=== PATIENT | male | born 1965 | race Caucasian/White ===

== ENCOUNTER 2018-09-14 16:23 | Inpatient (IN) | payer MEDICAID ==
[2018-09-14] MEDS ORDERED: Sodium Chloride 0.9% 1,000 ML IV ONE (16:48)
[2018-09-14] MEDS ORDERED: Sodium Chloride 0.9% 1,000 ML ONE (16:50)
[2018-09-14 17:02] LABS: BASO # 0.1 K/uL (0.0-0.2); BASO % 0.7 % (0.0-2.0); EOS # 0.1 K/uL (0.0-0.7); EOS % 1.3 % (0.0-4.0); HEMOGLOBIN 16.2 g/dL (12.0-18.0); LYMPH # 1.3 K/uL (1.0-4.3); MEAN CELL VOLUME 89.2 fL (80.0-94.0); MEAN CORPUSCULAR HGB CONC 33.6 g/dL (33.0-37.0); MEAN PLATELET VOLUME 7.6 fL (7.2-11.7); MONO # 1.1 K/uL (0.0-0.8); MONO % 12.8 % (0.0-10.0); NEUT # 5.7 K/uL (1.8-7.0); NEUT % 69.2 % (50.0-75.0); RBC 5.41 Mil/uL (4.40-5.90); RED CELL DISTRIBUTION WIDTH 14.4 % (11.5-14.5); WHITE BLOOD COUNT 8.2 K/uL (4.8-10.8)
--- NOTE | 2018-09-14 17:15 | C.PDOC ---
History Of Present Illness 53 y/o male brought to ER by ambulance from [facility] for evaluation of vomiting and abdominal pain which has been present for the past 7 days. Patient states that he now has dark blood in vomit.Patient denies having fever, chills, dysuria, and hematuria. Time Seen by Provider: 09/14/18 16:32 Chief Complaint (Nursing): GI Problem History Per: Patient History/Exam Limitations: no limitations Onset/Duration Of Symptoms: Days Current Symptoms Are (Timing): Still Present Severity: Moderate Past Medical History Reviewed: Historical Data, Nursing Documentation, Vital Signs Vital Signs: Last Vital Signs Temp 98.5 F 09/14/18 16:32 Pulse 97 H 09/14/18 16:32 Resp 18 09/14/18 16:32 BP 131/92 H 09/14/18 16:32 Pulse Ox 98 09/14/18 16:32 - Medical History PMH: CAD, Diabetes, HTN, Hypercholesterolemia, Pulmonary Embolism, Schizophrenia Denies: CHF Surgical History: Denies: Pacemaker - [facility] Procedures PERITONSILLAR I & D (04/19/14) TETANUS TOXOID ADMINIST (09/26/14) Family History: States: [place], CAD, Diabetes, Hypertension - Social History Hx Tobacco Use: Yes Hx Alcohol Use: Yes Hx Substance Use: No - Immunization History Hx Tetanus Toxoid Vaccination: No Hx Influenza Vaccination: No Hx Pneumococcal Vaccination: No Review Of Systems Except As Marked, All Systems Reviewed And Found Negative. Constitutional: Negative for: Fever, Chills Gastrointestinal: Positive for: Vomiting, Abdominal Pain. Negative for: Diarrhea Genitourinary: Negative for: Dysuria, Hematuria Physical Exam - Physical Exam Appears: Other (actively vomiting) Skin: Normal Color, Warm, Dry Head: Atraumatic, Normacephalic Eye(s): bilateral: Normal Inspection Nose: Normal Oral Mucosa: Moist Neck: Supple Chest: Symmetrical Cardiovascular: Rhythm Regular Respiratory: No Rales, Rhonchi (mild bilateral rhonchi), No Wheezing Gastrointestinal/Abdominal: Soft, Tenderness (mild diffuse tenderness), No Guarding, No Rebound Neurological/Psych: Oriented x3, Normal Speech ED Course And Treatment - Laboratory Results Result Diagrams: 09/14/18 16:55 09/14/18 16:55 Lab Interpretation: No Acute Changes ECG: Interpreted By Me ECG Rhythm: Sinus Rhythm ECG Interpretation: No Acute Changes Rate From EC O2 Sat by Pulse Oximetry: 98 (RA) Pulse Ox Interpretation: Normal - Radiology CXR: Interpreted by Me CXR Interpretation: Yes: No Acute Disease - Other Rad No standard instances X-Ray: Viewed By Me, Read By Radiologist Interpretation: FINDINGS: LUNGS: No focal consolidation. Please note that chest x-ray has limited sensitivity for the detection of pulmonary masses. PLEURA: No significant pleural effusion identified. No definite pneumothorax . CARDIOVASCULAR: Heart size appears within normal limits. Mild aortic ectasia. Atherosclerotic calcifications present. OSSEOUS STRUCTURES: Degenerative changes of the spine. VISUALIZED UPPER ABDOMEN: Unremarkable. OTHER FINDINGS: None. IMPRESSION: No focal consolidation present. Progress Note: Treated with IVF NSS, zofran and protonics. On re-evaluation treated with ativan IV. 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 - Scribe Statement The provider has reviewed the documentation as recorded by the Bradibe Leroy Swain Provider Attestation All medical record entries made by the Scribe were at my direction and personally dictated by me. I have reviewed the chart and agree that the record accurately reflects my personal performance of the history, physical exam, medical decision making, and the department course for this patient. I have also personally directed, reviewed, and agree with the discharge instructions and disposition. Decision To Admit - Pt Status Changed To: Hospital Disposition Of: Inpatient - Admit Certification Admit to Inpatient:: After my assessment, the patient will require hospitalization for at least two midnights. This is because of the severity of symptoms shown, intensity of services needed, and/or the medical risk in this patient being treated as an outpatient. - InPatient: Physician Admission Certification:: Intractable Vomiting. GI Bleeding - . Bed Request Type: Regular Admitting Physician: Evelio Gonzalez Patient Diagnosis: Gastrointestinal hemorrhage, Vomiting
[2018-09-14 17:20] LABS: ALB/GLOB RATIO 1.5 (1.0-2.1); ALBUMIN 4.4 g/dL (3.5-5.0); ALT/SGPT 14 U/L (21-72); AST/SGOT 19 U/L (17-59); BLOOD UREA NITROGEN 24 mg/dL (9-20); CALCIUM 9.2 mg/dl (8.6-10.4); GFR NON-AFRICAN AMERICAN > 60; LIPASE 75 U/L (23-300)
[2018-09-14 17:30] LABS: SQUAMOUS EPITHIAL < 1 /hpf (0-5); URINE AMORPHOUS SEDIMENT RARE /ul (<OCC); URINE BACTERIA OCC (<OCC); URINE BILIRUBIN NEGATIVE (NEGATIVE); URINE BLOOD NEGATIVE (NEGATIVE); URINE CLARITY Hazy (Clear); URINE COLOR Yellow (YELLOW); URINE GLUCOSE (UA) 1+ mg/dL (Normal); URINE LEUKOCYTE ESTERASE NEG Leu/uL (Negative); URINE PROTEIN NEGATIVE (NEGATIVE); URINE UROBILINOGEN NORMAL mg/dL (0.2-1.0)
--- NOTE | 2018-09-14 17:41 | RAD ---
HISTORY: SOB COMPARISON: Chest x-ray performed 07/24/14 TECHNIQUE: Chest PA and lateral FINDINGS: LUNGS: No focal consolidation. Please note that chest x-ray has limited sensitivity for the detection of pulmonary masses. PLEURA: No significant pleural effusion identified. No definite pneumothorax . CARDIOVASCULAR: Heart size appears within normal limits. Mild aortic ectasia. Atherosclerotic calcifications present. OSSEOUS STRUCTURES: Degenerative changes of the spine. VISUALIZED UPPER ABDOMEN: Unremarkable. OTHER FINDINGS: None. IMPRESSION: No focal consolidation present.
[2018-09-14] MEDS: Lactated Ringer's 1,000 ML IV SCH (22:53)
[2018-09-14] MEDS: (Novolin R) Insulin Human Regular 100 units/ml vial SC SCH (22:54)
[2018-09-15] MEDS: Lactated Ringer's 1,000 ML IV SCH ×3 (07:32→17:22)
[2018-09-15] MEDS: (Novolin R) Insulin Human Regular 100 units/ml vial SC SCH ×4 (07:33→21:17)
[2018-09-15 08:46] LABS: ALB/GLOB RATIO 1.4 (1.0-2.1); ALBUMIN 3.8 g/dL (3.5-5.0); ALT/SGPT 21 U/L (21-72); AMYLASE 69 U/L (30-110); AST/SGOT 24 U/L (17-59); BLOOD UREA NITROGEN 17 mg/dL (9-20); GFR NON-AFRICAN AMERICAN > 60; LIPASE 70 U/L (23-300)
[2018-09-15] MEDS: Enoxaparin 40 mg Syringe SC SCH (09:43)
--- NOTE | 2018-09-15 09:55 | US ---
Abdominal ultrasound HISTORY: Abdominal pain. Comparison: None available. TECHNIQUE: Real-time sonography was performed through the abdomen. Findings: Liver: 15.3 centimeters in length. Normal echogenicity. Gallbladder: No calculi or sludge. Normal wall thickness of 1.7 millimeters. Negative sonographic Phillips's sign. Common bile duct measures 4.8 millimeters, within normal limits. Limited visualization of the pancreas. Spleen measures 11.4 centimeters in length, within normal limits. Visualized aorta and IVC are preserved. Right kidney: 12.2 x 4.9 x 5.2 centimeters. No calculi or hydronephrosis. Left Kidney: 12.1 x 5.6 x 5.2 centimeters. No calculi or hydronephrosis. Impression: Unremarkable sonographic evaluation of the abdomen. Limited visualization of the pancreas. A preliminary report was submitted by [facility].
--- NOTE | 2018-09-15 20:09 | CARD ---
APPROVED REPORT Date of service: 09/14/2018 EKG Measurement Heart [id number] <Conclusion> Normal sinus rhythm Possible Left atrial enlargement Left anterior fascicular block Left ventricular hypertrophy Abnormal ECG
--- NOTE | 2018-09-15 21:13 | CP.PCM.HP ---
Present on Admission - Present on Admission Any Indicators Present on Admission: Yes History of DVT/PE: Yes Past Patient History - Tetanus Immunizations Tetanus Immunization: Unknown - Past Medical History & Family History Past Medical History?: Yes - Past Social History Smoking Status: Light Smoker < 10 Cigarettes Daily - CARDIAC Hx Congestive Heart Failure: No Hx Hypercholesterolemia: Yes Hx Hypertension: Yes Hx Pacemaker: No - PULMONARY Hx Pulmonary Embolism: Yes - NEUROLOGICAL Other/Comment: patient has unknown history of possible CVA/TIA with or without residual - HEENT Hx Deafness: No Hx Epistaxis: No - ENDOCRINE/METABOLIC Hx Diabetes Mellitus Type 2: Yes - MUSCULOSKELETAL/RHEUMATOLOGICAL Hx Falls: Yes (this AM after feeling dizzy) - PSYCHIATRIC Hx Schizophrenia: Yes Hx Substance Use: No - SURGICAL HISTORY Hx Cardiac Catheterization: Yes Other/Comment: left side of head injury and needs suturing - ANESTHESIA Hx Anesthesia: Yes Hx Anesthesia Reactions: No Hx Malignant Hyperthermia: No Has any member of the family had a problem w/ anesthesia?: No Meds Allergies/Adverse Reactions: Allergies Allergy/AdvReac Type Severity Reaction Status Date / Time No Known Allergies Allergy Verified 09/14/18 16:36 Results - Vital Signs Recent Vital Signs: Last Vital Signs Temp 98.2 F 09/15/18 17:52 Pulse 72 09/15/18 17:52 Resp 20 09/15/18 17:52 BP 113/71 09/15/18 17:52 Pulse Ox 96 09/15/18 17:52 - Labs Result Diagrams: 09/14/18 16:55 09/15/18 08:08 Labs: Laboratory Results - last 24 hr 09/14/18 09/15/18 09/15/18 21:44 07:07 08:08 Sodium 136 Potassium 4.0 Chloride 99 Carbon Dioxide 29 Anion Gap 12 BUN 17 Creatinine 0.8 Est GFR ( Amer) > 60 Est GFR (Non-Af Amer) > 60 POC Glucose (mg/dL) 163 H 147 H Random Glucose 146 H D Calcium 9.0 Phosphorus 3.6 Magnesium 1.9 Total Bilirubin 0.9 AST 24 ALT 21 D Alkaline Phosphatase 78 Total Protein 6.5 Albumin 3.8 Globulin 2.7 Albumin/Globulin Ratio 1.4 Amylase 69 Lipase 70 09/15/18 09/15/18 10:47 16:36 Sodium Potassium Chloride Carbon Dioxide Anion Gap BUN Creatinine Est GFR ( Amer) Est GFR (Non-Af Amer) POC Glucose (mg/dL) 169 H 172 H Random Glucose Calcium Phosphorus Magnesium Total Bilirubin AST ALT Alkaline Phosphatase Total Protein Albumin Globulin Albumin/Globulin Ratio Amylase Lipase
[2018-09-16] MEDS: Lactated Ringer's 1,000 ML IV SCH ×5 (02:36→23:30)
--- NOTE | 2018-09-16 06:12 | PN ---
DATE: 09/15/2018 LOCATION: 360, bed B. SUBJECTIVE: This 53-year-old male seen and examined in rounds with recurrent episodes of nausea as well as reported hiccup and dyspepsia. Due to above and due to reported episode of vomiting, the patient kept n.p.o. Today's lab results showed blood glucose level of 169. Rest of SMA-18 including serum lipase and amylase level is pending. The patient is for EGD at a.m. PHYSICAL EXAMINATION: GENERAL: A 53-year-old male. VITAL SIGNS: Afebrile, pulse of 68, respiratory rate 20 to 22, blood pressure 118/74. HEENT: Showed pale dry oral mucoid membrane. Nonicteric sclerae. LUNGS: A few scattered crepitation. Decreased air entry at bases. HEART: Positive S1 and S2. ABDOMEN: Soft. Bowel sounds are present. No mass or organomegaly. No rebound tenderness or guarding. EXTREMITIES: Without edema, clubbing, or cyanosis. NEUROLOGIC: No reported new neurological deficits, sensory or motor. Yesterday ultrasound results seen, unremarkable. IMPRESSION: 1. Re-exacerbation of peptic ulcer disease with episodes of nausea and vomiting. 2. Poorly controlled diabetes mellitus with symptomatic gastroparesis. 3. Multiple past medical history including hypertension, coronary artery disease, hyperlipidemia, pulmonary embolus with schizophrenia. SUGGESTIONS: 1. Continue current management. 2. Endoscopic evaluation of the upper GI tract. 3. Reglan IV. 4. Further recommendation to follow. Trae Marquez MD
[2018-09-16] MEDS: (Novolin R) Insulin Human Regular 100 units/ml vial SC SCH ×4 (07:17→22:33)
[2018-09-16 07:35] LABS: INR 1.1
[2018-09-16] MEDS ORDERED: Pneumococcal 23-Valent Vaccine IM ONE (10:00)
[2018-09-16] MEDS ORDERED: Lactated Ringer's 500 ML IV ONE ×2 (10:39)
[2018-09-16] MEDS ORDERED: Midazolam 2 MG/2 ML VIAL ONE (10:46)
[2018-09-16] MEDS ORDERED: Etomidate 20 mg/10ml Inj IV ONE (10:47)
[2018-09-16] MEDS: Enoxaparin 40 mg Syringe SC SCH (10:52)
[2018-09-16 17:14] VITALS: RESP 20
--- NOTE | 2018-09-16 18:11 | CP.PCM.PN ---
Objective - Vital Signs/Intake and Output Vital Signs (last 24 hours): Temp Pulse Resp BP Pulse Ox 97.9 F 75 20 107/67 98 09/16/18 16:00 09/16/18 16:00 09/16/18 16:00 09/16/18 16:00 09/16/18 16:00 Intake and Output: 09/16/18 09/16/18 06:59 18:59 Intake Total 1500 Output Total 200 Balance 1300 - Medications Medications: Current Medications Aspirin (Ecotrin) 81 mg PO DAILY [facility] Last Admin: 09/16/18 09:56 Dose: Not Given Cyclobenzaprine HCl (Flexeril) 5 mg PO DAILY [facility] Last Admin: 09/16/18 09:57 Dose: Not Given Enoxaparin Sodium (Lovenox) 40 mg SC DAILY [facility] Last Admin: 09/16/18 10:52 Dose: Not Given Famotidine (Pepcid) 20 mg PO BID [facility] Last Admin: 09/16/18 17:42 Dose: 20 mg Folic Acid (Folic Acid) 1 mg PO DAILY [facility] Last Admin: 09/16/18 09:57 Dose: Not Given Lactated Ringer's (Lactated Ringer's) 1,000 mls @ 100 mls/hr IV .Q10H [facility] Last Admin: 09/16/18 17:51 Dose: 100 mls/hr Insulin Human Regular (Novolin R) 0 unit SC [facility]; Protocol Last Admin: 09/16/18 17:10 Dose: 2 units Metformin HCl (Glucophage) 500 mg PO BID [facility] Last Admin: 09/16/18 17:43 Dose: 500 mg Metoclopramide HCl (Reglan) 5 mg IVP Q6 [facility] Last Admin: 09/16/18 17:43 Dose: 5 mg Ondansetron HCl (Zofran Inj) 4 mg IVP Q6 PRN PRN Reason: Nausea/Vomiting Last Admin: 09/15/18 11:23 Dose: 4 mg Pantoprazole Sodium (Protonix Inj) 40 mg IVP DAILY [facility] Last Admin: 09/16/18 10:52 Dose: Not Given Rosuvastatin Calcium (Crestor) 20 mg PO HS [facility] Last Admin: 09/15/18 21:12 Dose: 20 mg Thiamine HCl (Vitamin B1 Tab) 100 mg PO DAILY [facility] Last Admin: 09/16/18 09:57 Dose: Not Given Zolpidem Tartrate (Ambien) 5 mg PO HS PRN PRN Reason: Insomnia Last Admin: 09/15/18 22:50 Dose: 5 mg - Labs Labs: 09/14/18 16:55 09/15/18 08:08 PT 12.0 SECONDS (9.7-12.2) 09/16/18 07:06 INR 1.1 09/16/18 07:06 Assessment and Plan - Assessment and Plan (Free Text) Assessment: patient admitted from [facility] with complaints of persistant hicups and vomiting. S/P endoscopy done, no active bleeding noted. Started on reglan achs, cleared by GI for discharge. Discussed with DR Gonzalez, plan to discharge back to rehab on reglan ACHS. Advised not to eat very fast.
--- NOTE | 2018-09-16 19:21 | PN ---
DATE: 09/16/2018 SUBJECTIVE: The patient still has nausea, he has generalized weakness and vomiting. He is on clear liquid and he is seen by GI. Abdominal ultrasound was benign. No fever, no chills. That is resolved. PHYSICAL EXAMINATION: LUNGS: Clear. ABDOMEN: Epigastric tenderness, bowel sounds are present. ASSESSMENT: Gastritis, the patient is status post endoscopy today and it showed hiatal hernia. PLAN: The patient is for possible discharge. Evelio Gonzalez MD
--- NOTE | 2018-09-17 01:51 | HP ---
CHIEF COMPLAINT: Vomiting, nausea. HISTORY OF PRESENT ILLNESS: This is a 53-year-old male with history of cocaine abuse, stroke recently, treated stabilized and discharged to subacute rehab, , hypertension, hyperlipidemia, anxiety and depression, type 2 diabetes. He is noncompliant with diet and medication. While he was in rehab, he developed persistent nonstop nausea, vomiting, generalized weakness, tiredness, anorexia, malaise and fatigue. The patient also had abdominal discomfort. Nausea and vomiting is projectile, consisting of yellow liquids. No fecal matter, no food particles. Generalized weakness, tiredness and he has abdominal discomfort. He denies any dysuria. He denies any radiation of pain to the back. He denies any chest pain or palpitation. He has weakness and dizziness. He denies any polyuria, polydipsia, polyphagia. PAST MEDICAL HISTORY: CVA, hypertension, diabetes, hyperlipidemia. FAMILY HISTORY: Negative for stroke. SOCIAL HISTORY: He smokes, he drinks and he uses cocaine. PHYSICAL EXAMINATION: GENERAL: A middle-aged male, in mild to moderate distress with abdominal pain. VITAL SIGNS: Blood pressure 113/71, pulse 72, respiratory rate 20, temperature 98.2. SKIN: No rashes, no bruises, no purpura. HEENT: Atraumatic, normocephalic. Negative pallor. Negative jaundice. Extraocular movements are intact. NECK: Supple. No JVD. CHEST WALL: Bilateral symmetrical expansion. LUNGS: Clear. No rales. No rhonchi. CARDIOVASCULAR SYSTEM: S1, S2. Regular. No heave. No thrill. ABDOMEN: Soft with epigastric tenderness. Bowel sounds are exaggerated. Enlarged liver. RECTAL: No masses, no bleed. EXTREMITIES: No clubbing, cyanosis, or edema. CENTRAL NERVOUS SYSTEM: Awake, alert, oriented x3. Cranial nerves II through XII are normal. ASSESSMENT: 1. Acute abdominal pain, rule out gastroenteritis versus peptic ulcer disease versus colitis. 2. Dehydration. 3. Hypertension. 4. Type 2 diabetes. PLAN: Admit. Detailed orders are written. Seen and examined. Evelio Gonzalez MD [facility] # [id number]
[2018-09-17] MEDS: Lactated Ringer's 1,000 ML IV SCH ×3 (04:51→21:33)
[2018-09-17] MEDS: (Novolin R) Insulin Human Regular 100 units/ml vial SC SCH ×5 (07:46→23:28)
[2018-09-17] MEDS: Enoxaparin 40 mg Syringe SC SCH (11:24)
--- NOTE | 2018-09-18 00:16 | PN ---
DATE: 09/17/2018 SUBJECTIVE: The patient is still nauseous and weak. He is waiting for approval by the insurance to be transferred back to subacute rehab. PHYSICAL EXAMINATION: VITAL SIGNS: Blood pressure 136/77, pulse 66, respiratory rate 20, temperature 97.9. LUNGS: Clear. NECK: Supple. ABDOMEN: Soft. CENTRAL NERVOUS SYSTEM: Awake, alert, oriented x3. ASSESSMENT: 1. Gastritis, status post esophagogastroduodenoscopy. Abdominal ultrasound is benign. 2. Hypertension. 3. Diabetes. 4. Prior cerebrovascular accident. 5. Polysubstance abuse. PLAN: Monitor the patient. The patient will be transferred to subacute rehab on Wednesday. Evelio Gonzalez MD
[2018-09-18] MEDS ORDERED: DiphenhydrAMINE 50 mg/ml Inj IVP STA (00:58)
[2018-09-18] MEDS: (Novolin R) Insulin Human Regular 100 units/ml vial SC SCH ×4 (07:58→21:04)
[2018-09-18] MEDS: Enoxaparin 40 mg Syringe SC SCH (10:13)
--- NOTE | 2018-09-19 01:31 | PN ---
DATE: 09/19/2018 SUBJECTIVE: The patient, Ted, is waiting for subacute transfer. He is afebrile. Decreased nausea and vomiting. He is round the clock antiemetics. PHYSICAL EXAMINATION: VITAL SIGNS: Blood pressure 121/78, pulse 72, respiratory rate 20, and temperature 98.4. LUNGS: Clear. CARDIOVASCULAR SYSTEM: S1, S2 regular. ABDOMEN: Soft. ASSESSMENT: 1. Persistent nausea and vomiting due to gastritis, resolved. 2. Hypertension. 3. Polysubstance abuse. 4. Diabetes. PLAN: Await subacute rehab. Evelio Gonzalez MD
[2018-09-19] MEDS: (Novolin R) Insulin Human Regular 100 units/ml vial SC SCH ×4 (08:29→21:21)
[2018-09-19] MEDS: Enoxaparin 40 mg Syringe SC SCH (10:12)
[2018-09-19 12:00] LABS: BASO % 0.7 % (0.0-2.0); EOS # 0.1 K/uL (0.0-0.7); EOS % 1.9 % (0.0-4.0); HEMOGLOBIN 14.8 g/dL (12.0-18.0); LYMPH # 1.8 K/uL (1.0-4.3); LYMPH % 25.5 % (20.0-40.0); MEAN CELL VOLUME 88.7 fL (80.0-94.0); MEAN CORPUSCULAR HEMOGLOBIN 30.1 pg (27.0-31.0); MEAN CORPUSCULAR HGB CONC 33.9 g/dL (33.0-37.0); MEAN PLATELET VOLUME 7.8 fL (7.2-11.7); MONO # 0.5 K/uL (0.0-0.8); MONO % 6.9 % (0.0-10.0); NEUT # 4.6 K/uL (1.8-7.0); NRBC % 0.2 % (0.0-2.0); RBC 4.92 Mil/uL (4.40-5.90); RED CELL DISTRIBUTION WIDTH 14.3 % (11.5-14.5); WHITE BLOOD COUNT 7.1 K/uL (4.8-10.8)
[2018-09-19 12:15] LABS: ALB/GLOB RATIO 1.4 (1.0-2.1); ALBUMIN 4.2 g/dL (3.5-5.0); ALT/SGPT 20 U/L (21-72); AST/SGOT 18 U/L (17-59); BLOOD UREA NITROGEN 15 mg/dL (9-20); CALCIUM 9.4 mg/dl (8.6-10.4); GFR NON-AFRICAN AMERICAN > 60
--- NOTE | 2018-09-19 14:37 | PN ---
DATE: 09/19/2018 LOCATION: 353, bed B. SUBJECTIVE: This 53-year-old male with persistent complaint of nausea, dyspepsia and hiccup. Did not receive his regular medication unfortunately through the period of his admission. The patient has no evidence of active bleeding and the most recent lab results showed blood glucose level of 231. Pathology report from the upper endoscopy is still pending. PHYSICAL EXAMINATION: GENERAL: A 53-year-old male, awake, alert. VITAL SIGNS: Afebrile with pulse of 66, respiratory rate 20 to 22, blood pressure 110/74. HEENT: Showed pale dry oral mucous membrane. Nonicteric sclerae. LUNGS: Few scattered crepitation. Decreased air entry at bases. HEART: Positive S1 and S2. ABDOMEN: Soft with mild generalized tenderness. No mass or organomegaly. No rebound tenderness or guarding. EXTREMITIES: Without edema, clubbing or cyanosis. NEUROLOGIC: No reported new neurological deficit. No reported new focal deficits. IMPRESSION: 1. Re-exacerbation of peptic ulcer disease. 2. Poorly controlled diabetes mellitus with diabetic gastroparesis. 3. Multiple past medical history including poorly controlled hypertension, coronary artery disease, hyperlipidemia with pulmonary embolus and schizophrenia. SUGGESTIONS: 1. Continue current management. 2. Psychiatric evaluation and full reevaluation of his current and psychiatric medication which may induce his persistent hiccup. 3. Further recommendation to follow. Trae Marquez MD
[2018-09-19 18:05] LABS: BARBITURATES, UR NEGATIVE (NEGATIVE); BENZODIAZEPINES, UR NEGATIVE (NEGATIVE); OPIATES, UR NEGATIVE (NEGATIVE); PHENCYCLIDINE, UR NEGATIVE (NEGATIVE)
--- NOTE | 2018-09-19 20:29 | CP.PCM.PN ---
Subjective - Date & Time of Evaluation Date of Evaluation: 09/19/18 Time of Evaluation: 07:20 - Subjective Subjective: dictated Objective - Vital Signs/Intake and Output Vital Signs (last 24 hours): Temp Pulse Resp BP Pulse Ox 98 F 68 20 111/72 98 09/19/18 16:00 09/19/18 16:00 09/19/18 16:00 09/19/18 16:00 09/19/18 16:00 Intake and Output: 09/19/18 09/20/18 18:59 06:59 Intake Total 630 Output Total 200 Balance 430 - Medications Medications: Current Medications Aspirin (Ecotrin) 81 mg PO DAILY [facility] Last Admin: 09/19/18 10:12 Dose: 81 mg Cyclobenzaprine HCl (Flexeril) 5 mg PO DAILY [facility] Last Admin: 09/19/18 10:12 Dose: 5 mg Enoxaparin Sodium (Lovenox) 40 mg SC DAILY [facility] Last Admin: 09/19/18 10:12 Dose: 40 mg Folic Acid (Folic Acid) 1 mg PO DAILY [facility] Last Admin: 09/19/18 10:12 Dose: 1 mg Insulin Human Regular (Novolin R) 0 unit SC [facility]; Protocol Last Admin: 09/19/18 16:38 Dose: Not Given Metformin HCl (Glucophage) 500 mg PO BID [facility] Last Admin: 09/19/18 17:56 Dose: 500 mg Metoclopramide HCl (Reglan) 10 mg IVP Q6 [facility] Last Admin: 09/19/18 17:56 Dose: 10 mg Ondansetron HCl (Zofran Inj) 4 mg IVP Q6 PRN PRN Reason: Nausea/Vomiting Last Admin: 09/19/18 10:09 Dose: 4 mg Pantoprazole Sodium (Protonix Inj) 40 mg IVP DAILY [facility] Last Admin: 09/19/18 10:13 Dose: 40 mg Rosuvastatin Calcium (Crestor) 20 mg PO HS [facility] Last Admin: 09/18/18 21:06 Dose: 20 mg Thiamine HCl (Vitamin B1 Tab) 100 mg PO DAILY [facility] Last Admin: 09/19/18 10:12 Dose: 100 mg Zolpidem Tartrate (Ambien) 5 mg PO HS PRN PRN Reason: Insomnia Last Admin: 09/17/18 00:53 Dose: 5 mg - Labs Labs: 09/19/18 11:29 09/19/18 11:29 PT 12.0 SECONDS (9.7-12.2) 09/16/18 07:06 INR 1.1 09/16/18 07:06
--- NOTE | 2018-09-20 00:20 | PN ---
DATE: 09/19/2018 SUBJECTIVE: The patient gets nausea and occasional vomiting. He is eating right now. Right now, he denies any abdominal pain, nausea or vomiting. PHYSICAL EXAMINATION: VITAL SIGNS: Blood pressure 111/72, pulse 68, respiratory rate 20, temperature 98. LUNGS: Clear. CARDIOVASCULAR SYSTEM: S1 and S2, regular. ABDOMEN: Soft. Nontender. Bowel sounds are positive. ASSESSMENT: 1. Persistent nausea and vomiting, status post esophagogastroduodenoscopy. 2. Dehydration. 3. Hypertension. 4. Type 2 diabetes. PLAN: Accu-Chek sliding scale. Antiemetics. GI followup. Monitor the patient. Evelio Gonzalez MD
[2018-09-20 08:28] VITALS: O2SAT 97
[2018-09-20] MEDS: (Novolin R) Insulin Human Regular 100 units/ml vial SC SCH ×3 (08:30→17:44)
[2018-09-20] MEDS: Enoxaparin 40 mg Syringe SC SCH (09:18)
[2018-09-20 16:39] VITALS: BP 113/73; PULSE 70; TEMP 97.8
--- NOTE | 2018-09-20 16:41 | CP.PCM.PN ---
Subjective - Date & Time of Evaluation Date of Evaluation: 09/20/18 Time of Evaluation: 16:41 - Subjective Subjective: awake, alert, follows commands, no vomiting today. Objective - Vital Signs/Intake and Output Vital Signs (last 24 hours): Temp Pulse Resp BP Pulse Ox 98 F 66 20 101/64 97 09/20/18 08:26 09/20/18 08:26 09/20/18 08:26 09/20/18 08:26 09/20/18 08:26 Intake and Output: 09/20/18 09/20/18 06:59 18:59 Intake Total 150 530 Balance 150 530 - Medications Medications: Current Medications Aspirin (Ecotrin) 81 mg PO DAILY [facility] Last Admin: 09/20/18 09:17 Dose: 81 mg Cyclobenzaprine HCl (Flexeril) 5 mg PO DAILY [facility] Last Admin: 09/20/18 09:18 Dose: 5 mg Enoxaparin Sodium (Lovenox) 40 mg SC DAILY [facility] Last Admin: 09/20/18 09:18 Dose: 40 mg Folic Acid (Folic Acid) 1 mg PO DAILY [facility] Last Admin: 09/20/18 09:17 Dose: 1 mg Insulin Human Regular (Novolin R) 0 unit SC [facility]; Protocol Last Admin: 09/20/18 12:30 Dose: 1 units Metformin HCl (Glucophage) 500 mg PO BID [facility] Last Admin: 09/20/18 09:18 Dose: 500 mg Metoclopramide HCl (Reglan) 10 mg IVP Q6 [facility] Last Admin: 09/20/18 12:31 Dose: 10 mg Ondansetron HCl (Zofran Inj) 4 mg IVP Q6 PRN PRN Reason: Nausea/Vomiting Last Admin: 09/19/18 10:09 Dose: 4 mg Pantoprazole Sodium (Protonix Inj) 40 mg IVP DAILY [facility] Last Admin: 09/20/18 09:17 Dose: 40 mg Rosuvastatin Calcium (Crestor) 20 mg PO HS [facility] Last Admin: 09/19/18 21:53 Dose: 20 mg Thiamine HCl (Vitamin B1 Tab) 100 mg PO DAILY [facility] Last Admin: 09/20/18 09:18 Dose: 100 mg Zolpidem Tartrate (Ambien) 5 mg PO HS PRN PRN Reason: Insomnia Last Admin: 09/17/18 00:53 Dose: 5 mg - Labs Labs: 09/19/18 11:29 09/19/18 11:29 PT 12.0 SECONDS (9.7-12.2) 09/16/18 07:06 INR 1.1 09/16/18 07:06 Assessment and Plan - Assessment and Plan (Free Text) Assessment: 53 year old male admitted with persistent cough, gastritis, seen and examined. S/P EGD by DR Cai, had reglan iv q 6h. Alert and orientedx3, improving symptoms slowly. Discussed with DR Gonzalez , plan to discharge back to the rehab on reglan po for 7 days. Advised to follow up with psyche and adjust medications if no further improvement with symptoms.
--- NOTE | 2018-09-20 21:34 | CP.PCM.DIS ---
Provider - Provider Date of Admission: 09/14/18 17:25 Attending physician: Evelio Gonzalez MD Consults: 09/14/18 19:52 Case Management Referral Routine Comment: Physician Instructions: Reason For Exam: discharge planning back to long term Reason for Referral: Discharge Planning 09/14/18 21:35 Gastroenterology Consult Routine Comment: Consulting Provider: Trae Cai Consulting Physician: Trae Cai Reason for Consult: gastritis Time Spent in preparation of Discharge (in minutes): 30 Hospital Course - Lab Results Lab Results: Most Recent Lab Values WBC 7.1 K/uL (4.8-10.8) 09/19/18 11:29 RBC 4.92 Mil/uL (4.40-5.90) 09/19/18 11:29 Hgb 14.8 g/dL (12.0-18.0) 09/19/18 11:29 Hct 43.7 % (35.0-51.0) 09/19/18 11:29 MCV 88.7 fL (80.0-94.0) 09/19/18 11:29 MCH 30.1 pg (27.0-31.0) 09/19/18 11:29 MCHC 33.9 g/dL (33.0-37.0) 09/19/18 11:29 RDW 14.3 % (11.5-14.5) 09/19/18 11:29 Plt Count 368 K/uL (130-400) 09/19/18 11:29 MPV 7.8 fL (7.2-11.7) 09/19/18 11:29 Neut % (Auto) 65.0 % (50.0-75.0) 09/19/18 11:29 Lymph % (Auto) 25.5 % (20.0-40.0) 09/19/18 11:29 [place] % (Auto) 6.9 % (0.0-10.0) 09/19/18 11:29 Eos % (Auto) 1.9 % (0.0-4.0) 09/19/18 11:29 Baso % (Auto) 0.7 % (0.0-2.0) 09/19/18 11:29 Neut # (Auto) 4.6 K/uL (1.8-7.0) 09/19/18 11:29 Lymph # (Auto) 1.8 K/uL (1.0-4.3) 09/19/18 11:29 [place] # (Auto) 0.5 K/uL (0.0-0.8) 09/19/18 11:29 Eos # (Auto) 0.1 K/uL (0.0-0.7) 09/19/18 11:29 Baso # (Auto) 0.0 K/uL (0.0-0.2) 09/19/18 11:29 PT 12.0 SECONDS (9.7-12.2) 09/16/18 07:06 INR 1.1 09/16/18 07:06 Sodium 137 mmol/L (132-148) 09/19/18 11:29 Potassium 3.8 mmol/L (3.6-5.2) 09/19/18 11:29 Chloride 100 mmol/L (98-107) 09/19/18 11:29 Carbon Dioxide 26 mmol/L (22-30) 09/19/18 11:29 Anion Gap 15 (10-20) 09/19/18 11:29 BUN 15 mg/dL (9-20) 09/19/18 11:29 Creatinine 0.8 mg/dL (0.8-1.5) 09/19/18 11:29 Est GFR ( Amer) > 60 09/19/18 11:29 Est GFR (Non-Af Amer) > 60 09/19/18 11:29 POC Glucose (mg/dL) 225 mg/dL (65-110) H 09/20/18 16:27 Random Glucose 235 mg/dL (75-110) H D 09/19/18 11:29 Calcium 9.4 mg/dl (8.6-10.4) 09/19/18 11:29 Phosphorus 3.6 mg/dL (2.5-4.5) 09/15/18 08:08 Magnesium 1.8 mg/dL (1.6-2.3) 09/19/18 11:29 Total Bilirubin 0.7 mg/dL (0.2-1.3) 09/19/18 11:29 AST 18 U/L (17-59) 09/19/18 11:29 ALT 20 U/L (21-72) L 09/19/18 11:29 Alkaline Phosphatase 77 U/L (38-126) 09/19/18 11:29 Total Protein 7.2 g/dL (6.3-8.3) 09/19/18 11:29 Albumin 4.2 g/dL (3.5-5.0) 09/19/18 11:29 Globulin 3.0 gm/dL (2.2-3.9) 09/19/18 11:29 Albumin/Globulin Ratio 1.4 (1.0-2.1) 09/19/18 11:29 Amylase 69 U/L (30-110) 09/15/18 08:08 Lipase 70 U/L (23-300) 09/15/18 08:08 Urine Color Yellow (YELLOW) 09/14/18 17:17 Urine Clarity Hazy (Clear) 09/14/18 17:17 Urine pH 8.0 (5.0-8.0) 09/14/18 17:17 Ur Specific [place] 1.012 (1.003-1.030) 09/14/18 17:17 Urine Protein Negative mg/dL (NEGATIVE) 09/14/18 17:17 Urine Glucose (UA) 1+ mg/dL (Normal) H 09/14/18 17:17 Urine Ketones Negative mg/dL (NEGATIVE) 09/14/18 17:17 Urine Blood Negative (NEGATIVE) 09/14/18 17:17 Urine Nitrate Negative (NEGATIVE) 09/14/18 17:17 Urine Bilirubin Negative (NEGATIVE) 09/14/18 17:17 Urine Urobilinogen Normal mg/dL (0.2-1.0) 09/14/18 17:17 Ur Leukocyte Esterase Neg [place]/uL (Negative) 09/14/18 17:17 Urine WBC (Auto) 3 /hpf (0-5) 09/14/18 17:17 Urine RBC (Auto) < 1 /hpf (0-3) 09/14/18 17:17 Ur Squamous Epith Cells < 1 /hpf (0-5) 09/14/18 17:17 Amorphous Sediment Rare /ul (<OCC) H 09/14/18 17:17 Urine Bacteria Occ (<OCC) H 09/14/18 17:17 Urine Opiates Screen Negative (NEGATIVE) 09/19/18 17:39 Urine Methadone Screen Negative (NEGATIVE) 09/19/18 17:39 Ur Barbiturates Screen Negative (NEGATIVE) 09/19/18 17:39 Ur Phencyclidine Scrn Negative (NEGATIVE) 09/19/18 17:39 Ur Amphetamines Screen Negative (NEGATIVE) 09/19/18 17:39 U Benzodiazepines Scrn Negative (NEGATIVE) 09/19/18 17:39 U Oth Cocaine Metabols Negative (NEGATIVE) 09/19/18 17:39 U Cannabinoids Screen Negative (NEGATIVE) 09/19/18 17:39 Discharge Plan - Discharge Medications Prescriptions: Metoclopramide [Reglan] 10 mg PO Q6H 7 Days tab - Follow Up Plan Condition: STABLE Disposition: REHAB FACILITY/REHAB UNIT Instructions: Gastrointestinal Bleeding (DC), Nausea and Vomiting, Adult (DC), Metoclopramide Additional Instructions: advised, do not eat fast continue with present medications contiue reglan po q6h x 7 days follow up with psyche for medication adjustments if hicups persists Referrals: Evelio Gonzalez MD [Staff Provider] -
--- NOTE | 2018-09-21 03:28 | DS ---
DISCHARGE DIAGNOSES: 1. Acute gastritis with persistent vomiting. 2. Hypertension. 3. Cerebrovascular accident, old. 4. Diabetes. HISTORY OF PRESENT ILLNESS AND HOSPITAL COURSE: This is a 53-year-old male who is currently in subacute rehab facility after a stroke from cocaine abuse, hypertension, type 2 diabetes, hyperlipidemia who had been noncompliant in the past, and he was currently in a rehab. The patient was admitted with persistent nausea and vomiting, not tolerating p.o. and could not all kind of antiemetics and treatment at the subacute rehab. He was admitted to the floor, started on n.p.o., IV fluids, Accu-Chek sliding scale, Protonix IV, Zofran IV. GI evaluation was done. Endoscopy was done. The patient was treated accordingly. He is feeling better. He is for discharge. Condition upon discharge is stable. He will be followed up at the rehab. Evelio Gonzalez MD
== END 2018-09-20 21:16 | DRG 182 ==
LOC: C.ER 16:23 → C.3T 17:25
PROVIDERS: ADMIT Internal Medicine; ATTEND Internal Medicine
PROC: 0DB68ZX Excision of Stomach, Via Natural or Artificial Opening Endoscopic, Diagnostic (ICD-10-PCS; principal; 2018-09-19)
DX: K29.00 Acute gastritis without bleeding (principal); E11.65 Type 2 diabetes mellitus with hyperglycemia; E11.43 Type 2 diabetes mellitus with diabetic autonomic (poly)neuropathy; F14.90 Cocaine use, unspecified, uncomplicated; F20.9 Schizophrenia, unspecified; K44.9 Diaphragmatic hernia without obstruction or gangrene; B96.81 Helicobacter pylori [H. pylori] as the cause of diseases classified elsewhere; E86.0 Dehydration; E78.5 Hyperlipidemia, unspecified; F17.200 Nicotine dependence, unspecified, uncomplicated; I10 Essential (primary) hypertension; I25.10 Atherosclerotic heart disease of native coronary artery without angina pectoris; Z86.711 Personal history of pulmonary embolism; Z86.73 Personal history of transient ischemic attack (TIA), and cerebral infarction without residual deficits; Z91.11 Patient's noncompliance with dietary regimen; K31.84 Gastroparesis